=== PATIENT | female | born 2000 | race Caucasian/White ===

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

== ENCOUNTER 2019-08-13 22:09 | Emergency (ER) | payer MEDICAID, OTHER ==
[2019-08-13 22:18] VITALS: BP 111/66; PULSE 89
--- NOTE | 2019-08-14 00:06 | EDM.PDOC ---
ED HPI GENERAL MEDICAL PROBLEM - General Chief Complaint: MASTIC SPRAYER Problem Stated Complaint: STOMACH CRAMPING Time Seen by Provider: 08/13/19 22:34 Source of Information: Reports: Patient - History of Present Illness INITIAL COMMENTS - FREE TEXT/NARRATIVE: Dawna is a 19 y/o who arrives to the ER reporting that she is 8 days from a vaginal at [facility]. She reports uneventful obstetrical and intrapartum course. She reports that she is dizzy and lightheaded and soaking 1-2 pads an hour for the last few days. She was unable to get into the OBGYN office and so she comes here tonight. She reports that the bleeding gets better at night. - Related Data Allergies Allergy/AdvReac Type Severity Reaction Status Date / Time No Known Allergies Allergy Verified 11/22/18 22:54 Home Meds: Home Meds Ibuprofen [Advil] 1 - 2 tab PO Q6H PRN 08/13/19 [History] Iron 18 mg PO DAILY 08/13/19 [History] Past Medical History - Past Health History Medical/Surgical History: Denies Medical/Surgical History Psychiatric History: Reports: Depression, Suicide Attempt, Other (See Below) Other Psychiatric History: cutting - Past Surgical History GI Surgical History: Reports: Cholecystectomy Social & Family History - Tobacco Use Smoking Status *Q: Current Every Day Smoker Years of Tobacco use: 2 Packs/Tins Daily: 0.2 Review of Systems - Review of Systems Review Of Systems: See Below Constitutional: Reports: Weakness Eyes: Reports: No Symptoms Ears: Reports: No Symptoms Nose: Reports: No Symptoms Mouth/Throat: Reports: No Symptoms Respiratory: Reports: No Symptoms Cardiovascular: Reports: Lightheadedness GI/Abdominal: Reports: Other (cramping) Genitourinary: Reports: Vaginal Bleeding Musculoskeletal: Reports: No Symptoms Skin: Reports: No Symptoms Neurological: Reports: No Symptoms Psychiatric: Reports: No Symptoms ED EXAM, GENERAL - Physical Exam Exam: See Below General Appearance: Alert, WD/WN, No Apparent Distress Ears: Hearing Grossly Normal Nose: Normal Inspection, Normal Mucosa Throat/Mouth: Normal Lips, Normal Teeth Head: Atraumatic, Normocephalic Neck: Normal Inspection Respiratory/Chest: No Respiratory Distress Cardiovascular: Regular Rate, Rhythm GI/Abdominal: Soft, Non-Tender, Other (Fundus nonpalpable) (Female) Exam: Normal External Exam, Other (no clots or bleeding noted on exam with fundal massage). No: Vaginal Bleeding Rectal (Female) Exam: Deferred Extremities: Normal Inspection, Normal Capillary Refill Neurological: Alert, Oriented, CN II-XII Intact Psychiatric: Normal Affect, Normal Mood Skin Exam: Warm, Dry, Intact, Normal Color Lymphatic: No Adenopathy Course - Vital Signs Text/Narrative:: The patient was sen by the MIME ARTIST. Labs done. [id number] Labs results reviewed. Hgb=10.9, vitals stable. Bleeding reassessed and note no excessive bleeding on the ER. Will have patient contact her OB in the AM. Discussed importance of drinking plenty of water and eating regular meals. She was given discharge instructions and sent home in stable condition. Last Recorded V/S: Last Vital Signs Temp 36.6 C 08/13/19 22:16 Pulse 89 08/13/19 22:16 Resp 16 08/13/19 22:16 BP 111/66 08/13/19 22:16 Pulse Ox 97 08/13/19 22:16 - Orders/Labs/Meds Labs: Laboratory Tests 08/13/19 Range/Units 23:23 WBC 6.4 (4.0-10.0) x10^3/uL RBC 4.44 (4.00-5.50) x10^6/uL Hgb 10.9 L (12.0-16.0) g/dL Hct 35.1 (33.0-47.0) % MCV 79.1 D (78.0-93.0) fL MCH 24.5 L (26.0-32.0) pg MCHC 31.1 L (32.0-36.0) g/dL RDW Coeff of Day 14.7 (10.0-15.0) % Plt Count 352 (130-400) x10^3/uL Neut % (Auto) 64.5 (50.0-80.0) % Lymph % (Auto) 25.0 (25.0-50.0) % Arthur % (Auto) 8.0 (2.0-11.0) % Eos % (Auto) 1.9 (0.0-4.0) % Baso % (Auto) 0.6 (0.2-1.2) % Departure - Departure Time of Disposition: 00:08 Disposition: Home, Self-Care 01 Condition: Good Clinical Impression: complication, (normal spontaneous vaginal delivery) - Discharge Information *PRESCRIPTION DRUG MONITORING PROGRAM REVIEWED*: Not Applicable *COPY OF PRESCRIPTION DRUG MONITORING REPORT IN PATIENT CHELE: Not Applicable Instructions: Home Care Instructions for Mom Referrals: Shireen Ricketts MD [Primary Care Provider] - Additional Instructions: -Drink plenty of fluids -Eat regular meals -Call your primary OBGYN in the AM to discuss further instructions -Resume all instructions as given by [facility] Sepsis Event Note - Evaluation Sepsis Screening Result: No Definite Risk - Focused Exam Vital Signs: Vital Signs Temp Pulse Resp BP Pulse Ox 08/13/19 22:16 36.6 C 89 16 111/66 97 Date Exam was Performed: 08/14/19 Time Exam was Performed: 00:00
== END 2019-08-14 00:19 | disposition home or self-care (01) ==
LOC: VM.ED 22:09
DX: O90.9 Complication of the puerperium, unspecified (principal); R42 Dizziness and giddiness; O99.335 Smoking (tobacco) complicating the puerperium; F17.210 Nicotine dependence, cigarettes, uncomplicated
CPT/HCPCS: 36415; 85025; 99284

== ENCOUNTER 2020-05-20 19:26 | Emergency (ER) | payer OTHER, MEDICAID ==
[2020-05-20 20:26] VITALS: BP 107/70; PULSE 72
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
== END 2020-05-20 20:49 | disposition home or self-care (01) ==
LOC: VM.ED 19:26
DX: F32.9 Major depressive disorder, single episode, unspecified (principal)
CPT/HCPCS: 99284

== ENCOUNTER 2022-06-11 19:38 | Emergency (ER) | payer MEDICAID ==
[2022-06-11 20:10] VITALS: BP 114/60; PULSE 101
[2022-06-11 20:36] LABS: ANION GAP 13.2 mmol/L (5-15); CHLORIDE,CL 106 mmol/L (98-107); ESTIMATED GFR 135 mL/min (>=60); SODIUM,NA 138 mmol/L (136-145)
[2022-06-11] MEDS: Potassium Chloride 20 MEQ Tab.ER PO ONE (21:04)
[2022-06-11] MEDS: Acetaminophen 325 MG Tab PO ONE (21:04)
== END 2022-06-11 21:24 | disposition home or self-care (01) ==
LOC: VM.ED 19:38
DX: O99.892 Other specified diseases and conditions complicating childbirth (principal); G44.209 Tension-type headache, unspecified, not intractable; E87.6 Hypokalemia; Z3A.19 19 weeks gestation of pregnancy; Z90.49 Acquired absence of other specified parts of digestive tract
CPT/HCPCS: 36415; 80053; 81001; 85025; 87086; 99284; A9270

== ENCOUNTER 2023-02-07 17:28 | Emergency (ER) | payer MEDICAID ==
[2023-02-07 17:40] VITALS: BP 109/68; PULSE 89
[2023-02-07] MEDS ORDERED: Sodium Chloride 0.9% 10 ML Syringe FLUSH PRN (17:40)
[2023-02-07] MEDS: Ondansetron 4 MG/2 ML SDV IVPUSH ONE (17:55)
[2023-02-07] MEDS: Lactated Ringers 1,000 ML IV ONE (17:55)
[2023-02-07 18:07] LABS: HEMATOCRIT 40.8 % (33.0-47.0); HEMOGLOBIN 13.2 g/dL (12.0-16.0); MEAN CORPUSCULAR VOLUME 82.6 fL (78.0-93.0); RED BLOOD CELL COUNT 4.94 x10^6/uL (4.00-5.50); WHITE BLOOD CELL COUNT,WBC 5.3 x10^3/uL (4.0-10.0)
[2023-02-07 18:08] LABS: BASOPHILS PERCENT AUTO 0.4 % (0.2-1.2); EOSINOPHILS ABSOLUTE AUTO 0.3 x10^3/uL (0.0-0.5); EOSINOPHILS PERCENT AUTO 5.2 % (0.0-4.0); LYMPHOCYTES ABSOLUTE AUTO 2.3 x10^3/uL (1.0-4.8); LYMPHOCYTES PERCENT AUTO 43.1 % (25.0-50.0); MEAN CORPUSCULAR HEMOGLOBIN 26.7 pg (26.0-32.0); MEAN CORPUSCULAR HGB CONC 32.4 g/dL (32.0-36.0); MONOCYTES ABSOLUTE AUTO 0.4 x10^3/uL (0.0-0.8); MONOCYTES PERCENT AUTO 7.5 % (2.0-11.0); NEUTROPHILS ABSOLUTE AUTO 2.3 x10^3/uL (1.8-7.7); NEUTROPHILS PERCENT AUTO 43.8 % (50.0-80.0)
[2023-02-07 18:09] LABS: PLATELET COUNT,PLT 257 x10^3/uL (130-400)
[2023-02-07 18:24] LABS: A/G RATIO 1.13; ALANINE AMINOTRANSFERASE,ALT 24 U/L (14-59); ALBUMIN 4.3 g/dL (3.4-5.0); ALKALINE PHOSPHATASE 81 U/L (46-116); ASPARTATE AMNIOTRANSFERASE,AST 16 U/L (15-37); BILIRUBIN TOTAL 0.2 mg/dL (0.2-1.0); BLOOD UREA NITROGEN,BUN 7 mg/dL (7-18); C-REACTIVE PROTEIN 0.37 mg/dL (<=0.30); CALCIUM 8.8 mg/dL (8.5-10.1); CARBON DIOXIDE,CO2 26 mmol/L (21-32); CHLORIDE,CL 103 mmol/L (98-107); CREATININE 0.8 mg/dL (0.55-1.02); GLUCOSE RANDOM 86 mg/dL (70-99); MAGNESIUM 1.9 mg/dL (1.8-2.4); PROTEIN TOTAL,TP 8.1 g/dL (6.4-8.2); SODIUM,NA 140 mmol/L (136-145)
[2023-02-07 18:26] LABS: LACTIC ACID 0.6 mmol/L (0.4-2.0)
[2023-02-07 18:27] LABS: ESTIMATED GFR 105 mL/min (>=60); ETHANOL BLOOD MEDICAL < 3 mg/dL (0-3)
[2023-02-07 18:28] LABS: BILIRUBIN,URINE SMALL (NEGATIVE); COLOR,URINE YELLOW (YELLOW); GLUCOSE,URINE NEGATIVE (NEGATIVE); KETONES,URINE TRACE mg/dL (NEGATIVE); LEUKOCYTE ESTERASE,URINE NEGATIVE (NEGATIVE); NITRITE,URINE NEGATIVE (NEGATIVE); OCCULT BLOOD,URINE NEGATIVE (NEGATIVE); PROTEIN,URINE TRACE mg/dL (NEGATIVE); UROBILINOGEN,URINE 0.2 EU/dL (0.2)
[2023-02-07 18:29] LABS: APPEARANCE,URINE SLIGHTLY CLOUDY (CLEAR)
[2023-02-07 18:30] LABS: BACTERIA,URINE OCCASIONAL /HPF (NOT SEEN); MUCUS,URINE FEW /LPF (NOT SEEN); RBC,URINE 0-5 /HPF (NOT SEEN); SQUAMOUS EPITHELIAL CELLS,UR FEW /HPF (NOT SEEN); WBC,URINE 0-5 /HPF (NOT SEEN)
[2023-02-07 19:00] LABS: CORONAVIRUS COVID-19 NAA NEGATIVE (NEGATIVE); INFLUENZA A NAA NEGATIVE (NEGATIVE); INFLUENZA B NAA NEGATIVE (NEGATIVE); RESPIRATORY SYNCYTIAL VIR NAA NEGATIVE (NEGATIVE)
== END 2023-02-07 19:13 | disposition home or self-care (01) ==
LOC: VM.ED 17:28
DX: B34.9 Viral infection, unspecified (principal); F17.210 Nicotine dependence, cigarettes, uncomplicated; Z20.822 Contact with and (suspected) exposure to COVID-19
CPT/HCPCS: 0241U; 80053; 80307; 81001; 81025; 83605; 83735; 85025; 86140; 96361; 96374; 99283; 99284-25; J2405; J7120

== ENCOUNTER 2024-08-16 22:33 | Emergency (ER) | payer MEDICAID ==
[2024-08-16 22:57] VITALS: BP 125/73; PULSE 101
[2024-08-16] MEDS ORDERED: Sodium Chloride 0.9% 10 ML Syringe FLUSH PRN (23:16)
[2024-08-16] MEDS: Ketorolac 15 MG/ML SDV IVPUSH ONE (23:22)
[2024-08-16] MEDS: Dexamethasone 4 MG/ML SDV IVPUSH ONE (23:22)
[2024-08-16] MEDS: diphenhydrAMINE 50 MG/ML SDV IVPUSH ONE (23:23)
== END 2024-08-16 23:47 | disposition home or self-care (01) ==
LOC: VM.ED 22:33
DX: G44.209 Tension-type headache, unspecified, not intractable (principal); Z90.49 Acquired absence of other specified parts of digestive tract
CPT/HCPCS: 96374; 96375; 99283-25; 99284; J1100; J1200; J1885

== ENCOUNTER 2024-09-30 21:53 | Emergency (ER) | payer MEDICAID ==
[2024-09-30] MEDS: Take Home: Doxycycline 100 MG Cap, 4 Cap Pack PO ONE (23:15)
[2024-09-30] MEDS: Albuterol/Ipratropium 3.0-0.5 MG/3 ML Neb Soln NEB ONE (23:15)
[2024-09-30] MEDS: predniSONE 20 MG Tab PO ONE (23:18)
[2024-09-30 23:26] VITALS: BP 127/60; PULSE 89
[2024-10-01] MEDS ORDERED: predniSONE 20 MG Tab PO ONE (23:07)
== END 2024-09-30 23:21 | disposition home or self-care (01) ==
LOC: VM.ED 21:53
DX: J45.901 Unspecified asthma with (acute) exacerbation (principal); J20.9 Acute bronchitis, unspecified; J98.9 Respiratory disorder, unspecified; F17.210 Nicotine dependence, cigarettes, uncomplicated
CPT/HCPCS: 71046; 87428-QW; 87651; 93010; 99284; 99285; A9270-GY; J7512

== ENCOUNTER 2025-04-28 14:17 | Emergency (ER) | payer MEDICAID ==
[2025-04-28] MEDS ORDERED: Sodium Chloride 0.9% 10 ML Syringe FLUSH PRN (14:32)
[2025-04-28 14:36] VITALS: BP 106/52; PULSE 69
[2025-04-28] MEDS: Lidocaine 2% Viscous Solution 15 ML UD PO ONE (14:44)
[2025-04-28] MEDS: Promethazine 12.5 MG in Sodium Chloride 0.9% 100 ML IV ONE (14:50)
[2025-04-28 14:57] LABS: BASOPHILS ABSOLUTE AUTO 0.0 x10^3/uL (0.0-0.2); BASOPHILS PERCENT AUTO 0.3 % (0.2-1.2); EOSINOPHILS ABSOLUTE AUTO 0.2 x10^3/uL (0.0-0.5); EOSINOPHILS PERCENT AUTO 2.6 % (0.0-4.0); IMMATURE GRAN ABSOLUTE AUTO 0.01 x10^3/uL (0.00-0.07); IMMATURE GRAN PERCENT AUTO 0.20 % (0.00-0.43); LYMPHOCYTES ABSOLUTE AUTO 1.9 x10^3/uL (1.0-4.8); LYMPHOCYTES PERCENT AUTO 32.2 % (25.0-50.0); MONOCYTES ABSOLUTE AUTO 0.5 x10^3/uL (0.0-0.8); MONOCYTES PERCENT AUTO 8.6 % (2.0-11.0); NEUTROPHILS ABSOLUTE AUTO 3.3 x10^3/uL (1.8-7.7); NEUTROPHILS PERCENT AUTO 56.1 % (50.0-80.0); PLATELET COUNT,PLT 296 x10^3/uL (130-400); RED BLOOD CELL COUNT 4.62 x10^6/uL (4.00-5.50); WHITE BLOOD CELL COUNT,WBC 5.8 x10^3/uL (4.0-10.0)
[2025-04-28 15:13] LABS: A/G RATIO 0.95; ALANINE AMINOTRANSFERASE,ALT 12.0 U/L (14-59); ASPARTATE AMNIOTRANSFERASE,AST 13.0 U/L (15-37); BILIRUBIN TOTAL 0.2 mg/dL (0.2-1.0); BLOOD UREA NITROGEN,BUN 8.0 mg/dL (7-18); CARBON DIOXIDE,CO2 25.0 mmol/L (21-32); CHLORIDE,CL 105.0 mmol/L (98-107); CREATININE 0.7 mg/dL (0.55-1.02); EST CRCL DRUG DOSING (CG) 105.17 mL/min; GLUCOSE RANDOM 87.0 mg/dL (70-99); POTASSIUM,K 3.7 mmol/L (3.5-5.1); PROTEIN TOTAL,TP 7.2 g/dL (6.4-8.2); SODIUM,NA 140.0 mmol/L (136-145)
[2025-04-28 15:14] LABS: ESTIMATED GFR 122.0 mL/min (>=60)
[2025-04-28] MEDS: Benzocaine 20% Topical Spray UD MUCMEM ONE (15:18)
== END 2025-04-28 16:23 | disposition home or self-care (01) ==
LOC: VM.ED 14:17
DX: G89.18 Other acute postprocedural pain (principal); Z98.890 Other specified postprocedural states; E86.0 Dehydration; R11.2 Nausea with vomiting, unspecified; Z90.49 Acquired absence of other specified parts of digestive tract
CPT/HCPCS: 80053; 85025; 86140; 96361; 96365; 99283-25; 99284; A9270-GY; J2550; J7030

== ENCOUNTER 2025-05-02 22:44 | Emergency (ER) | payer MEDICAID ==
[2025-05-02] MEDS ORDERED: Sodium Chloride 0.9% 10 ML Syringe FLUSH PRN (23:18)
[2025-05-02] MEDS: Lactated Ringers 1,000 ML IV ONE (23:20)
[2025-05-02 23:26] LABS: BASOPHILS ABSOLUTE AUTO 0.0 x10^3/uL (0.0-0.2); BASOPHILS PERCENT AUTO 0.5 % (0.2-1.2); EOSINOPHILS ABSOLUTE AUTO 0.1 x10^3/uL (0.0-0.5); EOSINOPHILS PERCENT AUTO 0.9 % (0.0-4.0); IMMATURE GRAN ABSOLUTE AUTO 0.01 x10^3/uL (0.00-0.07); IMMATURE GRAN PERCENT AUTO 0.10 % (0.00-0.43); LYMPHOCYTES ABSOLUTE AUTO 1.8 x10^3/uL (1.0-4.8); LYMPHOCYTES PERCENT AUTO 23.5 % (25.0-50.0); MONOCYTES ABSOLUTE AUTO 0.5 x10^3/uL (0.0-0.8); MONOCYTES PERCENT AUTO 6.1 % (2.0-11.0); NEUTROPHILS ABSOLUTE AUTO 5.2 x10^3/uL (1.8-7.7); NEUTROPHILS PERCENT AUTO 68.9 % (50.0-80.0); PLATELET COUNT,PLT 333 x10^3/uL (130-400); RED BLOOD CELL COUNT 4.76 x10^6/uL (4.00-5.50); WHITE BLOOD CELL COUNT,WBC 7.6 x10^3/uL (4.0-10.0)
[2025-05-02] MEDS: Ketorolac 15 MG/ML SDV IVPUSH ONE (23:26)
[2025-05-02] MEDS: diphenhydrAMINE 50 MG/ML SDV IVPUSH ONE (23:28)
[2025-05-02 23:41] LABS: A/G RATIO 0.93; ALANINE AMINOTRANSFERASE,ALT 22 U/L (14-59); ASPARTATE AMNIOTRANSFERASE,AST 14 U/L (15-37); BILIRUBIN TOTAL 0.3 mg/dL (0.2-1.0); BLOOD UREA NITROGEN,BUN 9 mg/dL (7-18); CARBON DIOXIDE,CO2 21 mmol/L (21-32); CHLORIDE,CL 101 mmol/L (98-107); CREATININE 0.6 mg/dL (0.55-1.02); ESTIMATED GFR 127 mL/min (>=60); GLUCOSE RANDOM 75 mg/dL (70-99); POTASSIUM,K 3.4 mmol/L (3.5-5.1); PROTEIN TOTAL,TP 7.7 g/dL (6.4-8.2); SODIUM,NA 138 mmol/L (136-145)
[2025-05-02 23:43] LABS: LACTIC ACID 0.7 mmol/L (0.4-2.0)
[2025-05-02 23:48] VITALS: BP 121/75; PULSE 92
[2025-05-02 23:54] LABS: APPEARANCE,URINE CLEAR (CLEAR); GLUCOSE,URINE NEGATIVE (NEGATIVE); OCCULT BLOOD,URINE NEGATIVE (NEGATIVE)
[2025-05-03 00:01] LABS: SQUAMOUS EPITHELIAL CELLS,UR MODERATE /HPF (NOT SEEN)
== END 2025-05-03 00:30 | disposition home or self-care (01) ==
LOC: VM.ED 22:44
DX: K91.89 Other postprocedural complications and disorders of digestive system (principal); R11.2 Nausea with vomiting, unspecified; Z90.49 Acquired absence of other specified parts of digestive tract; Z98.890 Other specified postprocedural states
CPT/HCPCS: 36415; 80053; 81001; 83605; 83735; 85025; 87040; 96361; 96374; 96375; 99284; J1200; J1308; J1790; J1885; J7120